=== PATIENT | male | born 1970 | race Caucasian/White ===

== ENCOUNTER 2024-07-18 18:00 | Emergency (ER) | payer BC ==
[~2024-07-18] VITALS: Ht 180.3 cm; Wt 104.3 kg
[2024-07-18] MEDS ORDERED: SODIUM CHLORIDE 0.9% 1,000 ML IV SCH (18:05)
[2024-07-18] MEDS ORDERED: ACETAMINOPHEN 325 MG TAB PO ONE (18:05)
[2024-07-18 18:15] LABS: BASO % 0.4 % (0.0-1.0); EOS # 0.1 10*3/uL (0.0-0.4); EOS % 1.4 % (1.0-4.0); HEMATOCRIT 45.6 % (42.0-52.0); MEAN CELL VOLUME 87.7 fl (80.0-94.0); MEAN CORPUSCULAR HGB 29.8 pg (27.0-31.0); MEAN PLATELET VOLUME 11.1 fl (9.6-12.3); MONO # 0.1 10*3/uL (0.1-1.0); MONO % 1.5 % (3.0-9.0); NEUT % 83.2 % (47.0-73.0); PLATELET COUNT AUTOMATED 166 10*3/uL (130-400); RED CELL DISTRI WIDTH 12.2 % (0-14.5); WHITE BLOOD COUNT 7.2 10*3/uL (4.8-10.8)
[2024-07-18] MEDS ORDERED: NAPROXEN500 MG PO (18:30)
[2024-07-18] MEDS ORDERED: LOSARTAN-HCTZ1 EACH PO (18:30)
[2024-07-18 18:35] LABS: ALKALINE PHOSPHATASE 80 U/L (46-116); BUN 21 mg/dl (9-23); CHLORIDE 103 mmol/L (98-107); POTASSIUM 3.7 mmol/L (3.4-5.1); SGPT/ALT 30 U/L (5-49); TOTAL PROTEIN 7.2 gm/dL (6.0-8.0)
[2024-07-18] MEDS ORDERED: SODIUM CHLORIDE 0.9% 100 ML BAG IV ONE (20:15)
[2024-07-18] MEDS ORDERED: IOHEXOL 350 MG/ML 100 ML VIAL IV ONE ×2 (20:15→20:31)
[2024-07-18] MEDS ORDERED: cefTRIAXone Sodium 1 GM/10 ML SYR IV ONE (20:25)
[2024-07-18] MEDS ORDERED: AZITHROMYCIN 250 MG TAB PO ONE (20:25)
[2024-07-18] MEDS ORDERED: Ketorolac Tromethamine 30 MG/ML VIAL IV ONE (20:25)
[2024-07-18 20:28] LABS: BILIRUBIN Negative (Negative); BLOOD Negative (Negative); CLARITY Clear (Clear); COLOR Yellow (Yellow); GLUCOSE Negative (Negative); KETONE Trace (Negative); LEUKO ESTERASE Negative (Negative); NITRITE Negative (Negative); PH 5.5 (4.5-8.0); UROBILINOGEN 0.2 E.U./dl (0.0-1.0)
[2024-07-18] MEDS ORDERED: SODIUM CHLORIDE 0.9% 100 ML IV ONE (20:31)
[2024-07-18 21:07] LABS: BACTERIA TRACE
[2024-07-18] MEDS ORDERED: SODIUM CHLORIDE 0.9% 1,000 ML IV ONE (22:14)
[2024-07-18] MEDS ORDERED: OMNICEF300 MG PO (22:30)
[2024-07-18] MEDS ORDERED: AVPAK AZITHROM250 MG PO (22:30)
== END 2024-07-18 23:00 | disposition home or self-care (01) ==
LOC: ED 18:00
PROVIDERS: Emergency Medicine; Internal Medicine
DX: J40 Bronchitis, not specified as acute or chronic (principal); R50.9 Fever, unspecified; Z20.822 Contact with and (suspected) exposure to COVID-19; R00.0 Tachycardia, unspecified